=== PATIENT | male | born 1975 | race Caucasian/White ===

== ENCOUNTER 2017-04-03 06:46 | Outpatient (CLI) ==
[2014-04-24 00:43] VITALS: BMI 26.2
--- NOTE | 2017-04-03 13:03 | STRESSECHO ---
Date of Test: 04/03/17 Reason for Exam: CHEST PAIN Ordering Physician: DAKOTA GREENE Current Medications: NONE Physical Findings: S1, S2, NO S3 Resting EKG: SINUS RHYTHM/NO ACUTE CHANGES Target Heart Rate: 153/180 STAGE MPH/GRADE HEART RATE BPM BLOOD PRESSURE mmhg RHYTHM S-T SEGMENT +/- UP DOWN SYMPTOMS,COMMENTS At Rest 68 118/78 SR X NONE 1 1.7/10% 112 130/90 SR X NONE 2 2.5/12% 126 128/90 SR X NONE 3 3.4/14% 4 4.2/16% 5 5.0/18% Immediately after 140/92 SR X FATIGUE Durations of Exercise: 9:40 Maximum Heart Rate Reached: 155 Reason for Termination: FATIGUE INTERPRETATION: 98% OXYGEN SATURATION WITH EXERCISE ON ROOM AIR METS 12.1 1. NO EVIDENCE OF ISCHEMIA BY ST-T WAVE 2. NO CHEST PAIN OR CHEST DISCOMFORT 3. BLOOD PRESSURE RESPONSE: NORMAL 4. NO ARRHYTHMIAS NORMAL LEFT VENTRICULAR CONTRACTILITY --RESTING AND POST EXERCISE MTDD
--- NOTE | 2017-04-03 13:06 | ECHOSTRESS ---
Date of Exam: 04/02/17 Ordering Physician: DAKOTA GREENE Reason for Echo: CHEST PAIN, STRESS TEST--NO ISCHEMIA M-Mode Normal Adult Results LV Dimensions Normal Adult Results AoV Opening excursions >1.6 LVEDD-base- 3.5-5.8 Ao root dimensions 2.0-3.7 LVESD-base- 3.1-4.6 L. Atrium dimensions 1.9-3.8 Post. Wall thickness 0.8-1.1 IV septum (thickness) 0.7-1.2 Post. Wall excursion 0.72-1.3 Septal motion Systolic motion R. Ventricular cavity 1.5-2.0 LVEF 60% Paradoxical septal wall motion 2-D: NORMAL LEFT VENTRICULAR CONTRACTILITY--RESTING AND POST EXERCISE M-MODE: MV: AV: TV: PV: CHAMBER SIZE: WALL MOTION: NORMAL LEFT VENTRICULAR CONTRACTILITY--RESTING AND POST EXERCISE PERICARDIUM: INTERPRETATION: 1. NORMAL LEFT VENTRICULAR CONTRACTILITY--RESTING AND POST EXERCISE MTDD
== END 2017-04-03 06:47 | disposition home or self-care (01) ==
LOC: CAR 06:46
PROVIDERS: ATTEND Internal Medicine
DX: R07.9 Chest pain, unspecified (principal); R06.02 Shortness of breath